=== PATIENT | female | born 1935 | race Caucasian/White ===

== ENCOUNTER 2016-04-02 20:05 | Inpatient (IN) | payer MEDICARE, OTHER ==
[~2016-04-02] VITALS: Ht 160 cm; Wt 78.6 kg
[~2016-04-02 20:05] MED LIST: ALENDRONATE SOD70 M1 PO; ALTACE10 MG PO; AMITRIPTYLINE75 MG PO; ARICEPT5 MG PO; ASPIRIN CHILDRE81 MG PO; ATENOLOL25 M1 PO; BACLOFEN 10MG T10 MG PO; BETIMOL 5 ML5 M1 OP; CALCIUM 600600 M1 PO; CARAFATE 1GM TAB1 GM PO; HYDROCHLOROTH12.5 M1 PO; MULTIVITAMIN1 TA1 PO; PRILOSEC20 MG PO; SULFAMETHOXAZOL1 TA6 PO
[2016-04-02 20:07] VITALS: BP 152/94
[2016-04-02 20:26] LABS: HEMOGLOBIN 12.2 g/dL (12.2-16.2); LYMPH # 1.4 K/mm3 (0.7-4.5); LYMPH % 49.2 % (10-50.0)
--- NOTE | 2016-04-02 20:34 | Emergency Room Report ---
History of Present Illness Time Seen by 2020 Presenting Problem in Triage Pt arrived:Walked Presenting Problem:PT COMPLAINING OF CHEST "TIGHTNESS" AND HER HEART "NOT FEELING RIGHT". SHE STATES THAT IT STARTED AT 1830 THIS PM. 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 N Clinical Suspician of Infection? N Mental Status: 1 - Regular (Normal Baseline) Sepsis Risk:Low Sepsis Risk Have you (or family members/close friends) recently traveled outside the [place]? N If Yes, where/when: Have you had exposure to infectious disease within the past month? N TB? Other? Specify: Source patient, RN notes reviewed, family, old records Exam Limitations no limitations Comment acute onset of palpatation w/o chest pain or syncope and no known hx of a fib Cardiac Chest Pain Chest pain indicative of cardiac No Timing/Duration this evening Severity moderate ALLERGIES Coded Allergies: rosuvastatin (From CREST[facility]) (04/02/16) Home Medications Reported Medications Hydrochlorothiazide (Hydrochlorothiazide 12.5MG) 12.5 MG PO DAILY ASPIRIN (Aspirin) 81 MG PO DAILY Gabapentin (Gabapentin 300MG) 300 MG PO QHS Atorvastatin Calcium (Atorvastatin) 40 MG PO DAILY Amlodipine Besylate (Amlodipine) 5 MG PO DAILY Cyanocobalamin (Vitamin B-12) (B-12) 1,000 MCG PO DAILY Cholecalciferol (Vitamin D3) (D3-2000) 1,000 UNIT PO DAILY Alpha Lipoic Acid 400 MG PO DAILY Calcium Carb/Vitamin D3/Vit K1 (Viactiv Soft Chew) 1 EACH PO DAILY UBIDECARENONE (Coenzyme Q-10) 300 MG PO DAILY IBUPROFEN MICRONIZED (IBUPROFEN 600MG) 600 MG PO Q8HP PRN PAIN Benzonatate (Tessalon Perle) 100 MG PO TID Azithromycin (Avpak Azithromycin) 250 MG PO DAILY Docusate Sodium 100 MG PO DAILY History Medical History General CAD? No Angina: No [place]: No Hypertension? Yes Hyperlipidemia? Yes CHF? No DVT? No PE? No COPD? No Asthma? No Anemia? No GERD? No Gastric ulcers? No GI Bleed? No Hernia? No Thyroid Problems? No Hypothyroidism? No CVA? No Seizures? No Diabetes? No Renal Insuffiency? No End Stage Renal Disease? No UTI? Yes Stones? No BPH? No GB Disease: Yes Nephritic Syndrome? No Asplenia? No Hepatitis? No Sickle Cell Disease? No Arthritis? No Migraines? No Cataracts? Yes Glaucoma? Yes MRSA? No HIV? No TB? No Anxiety? No Depression? No Cancer? Yes Site: ENDOMETRIAL More? No Immunization Hx DT/Tetanus 5-10 Years Ago Flu 2012-FSN Pneumonia Received In Past Surgical Hx Previous Surgery?Y D AND C LEFT WRIST CLOSED REDUC CATARACT REMOVAL BILAT. LEFT WRIST OPEN REDUC WISDOM TEETH HEART CATH ANKLE/TIB-FIB REPAIR COLONOSCOPY LAP ALEXANDRA LEFT KNEE ARTHROSCOPY HITAL HERNIA REPAIR [place] 02/10 Family History Family Hx Diabetes No CAD Yes Hypertension Yes Hyperlipidemia No Cancer Yes TB No Social History Smoking Hx Smoker: Never Smoker Tobacco: No Type N/A Are you/the child exposed to second-hand smoke: No Alcohol Alcohol: No Drugs none Review of Systems All Other Systems Reviewed and Negative Constitutional denies fever Eyes denies drainage ENT denies: ear pain, nose congestion, throat pain. Respiratory denies cough, denies shortness of breath, denies wheezing Cardiovascular see HPI, denies chest pain, palpitations, denies syncope Gastrointestinal denies abdominal pain, denies diarrhea, denies vomiting Genitourinary denies: dysuria, frequency, hesitancy, hematuria. Musculoskeletal denies back pain, denies joint pain, denies joint swelling, denies neck pain Skin denies rash Psychiatric/Neurological denies headache, denies seizure Physical Exam Vital Signs Vital Signs Date Time Temp Pulse Resp B/P Pulse O2 O2 Flow FiO2 Ox Delivery Rate 04/02 2113 130 18 144/70 97 04/02 2041 146 18 150/81 94 04/02 2006 98.2 145 18 152/94 96 - WBC >12,000 or <4,000 or 10% bands? 2 or more SIRS Criteria Met? B/P:144/70 MAP:113 Creatinine >2.0? UA output<0.5ml/kg/hr for 2 hrs? Platelet count >100,000? Lactate >2.0mmol/1? INR >1.2 or PTT > than 60 sec? Evidence of Organ Dysfunction? Provider documented clinical suspician of infection? N Sepsis Criteria Count: 1 Sepsis Risk: Low Sepsis Risk General Appearance no apparent distress Eye Exam - bilateral eye PERRL, bilateral eye EOMI Ear, Nose, Throat normal ENT inspection Neck supple, no bruits Respiratory Status No: respiratory distress. Lung Sounds bilateral: rhonchi. 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 No Results/Orders Laboratory Tests 04/02/162014: TSH Pending, Thyroxine (T4) Pending 04/02/162014: Sodium 135 L, Potassium 3.1 L, Chloride 98, Carbon Dioxide 31, BUN 17, Creatinine 1.0, Estimated Creat Clear 55, Estimated GFR (MDRD) 53 L, Glucose 156 H, Calcium 8.5, Total Bilirubin 0.3, AST 31, ALT 34, Alkaline Phosphatase 103, Creatine Kinase 106, CK-MB (CK-2) Rel Index 1.0, CK and CKMB Interp 1.1, Troponin I < 0.02, Total Protein 7.1, Albumin 3.4, Globulin 3.7 H, Albumin/ Globulin Ratio 0.9 L, WBC 2.9 L, RBC 4.38, Hgb 12.2, Hct 37.3, MCV 85.1, RDW 13.8, Plt Count 286, MPV 8.5, Gran % 38.9, Gran # 1.1 L, Total Counted 100, Lymphocytes % 49.2, Monocytes % 8.1, Eosinophils % 3.4, Basophils % 0.3, Neutrophils 37 L, Band Neutrophils 3, Lymphocytes (Manual) 54 H, Lymphocytes # 1.4, Monocytes (Manual) 6, Monocytes # 0.2, Eosinophils # 0.1, Basophils # 0.0, Platelet Estimate NORMAL, Rouleaux SL., PUBS MCHC 32.6, MCH 27.8 Current Medication Orders Sig/Yeny Start time Last Medication Dose Route Stop Time Status Admin Potassium Chloride 20 MEQ ONCE ONE 04/02 2114 DC PO 04/02 2115 Diltiazem HCl 10 MG ONCE ONE 04/02 2044 DC 04/02 IV 04/02 Diltiazem HCl 100 MG ONCE ONE 04/02 2044 AC 04/02 Sodium Chloride 100 ML IV 04/03 Diltiazem HCl 0 .STK-MED ONE 04/02 2041 DC IV Diltiazem HCl 0 .STK-MED ONE 04/02 2041 DC IV Sodium Chloride 100 ML .STK-MED ONE 04/02 2041 DC IV Aspirin 243 MG ONCE ONE 04/02 2029 DC 04/02 PO 04/02 Sodium Chloride 10 ML PRN PRN 04/02 2029 AC IV 04/03 2017 Aspirin 0 .STK-MED ONE 04/02 2022 DC .ROUTE Orders Procedure Date/time Status Decision to admit 04/02 2113 Active THYROID STIMULATING HORMONE 04/02 2034 Active THYROXINE (T4) 04/02 2034 Active ELECTROCARDIOGRAM REQUEST 04/02 2018 Active CHEST-PORTABLE 04/02 2018 Active IV SALINE LOCK 04/02 2018 Active CBC WITH AUTO DIFF 04/02 2018 Complete CARDIAC ENZYMES 04/02 2018 Complete CHEM 12 PROFILE 04/02 2018 Complete DIFFERENTIAL-WBC 04/02 2014 Complete CM/EKG CM/internal audit consultant Rhythm Atrial Fibrillation EKG non-spec. ST/Twave chgs XRAY/CT/US XRAY/CT/US XRAY chest XR interpretation by reviewed by me Xray Results normal/NAD Departure Departure Time of Disposition 2111 Disposition Still a Patient Clinical Impression Primary Impression: Atrial fibrillation with RVR Secondary Impressions: Hypokalemia Condition STABLE Referrals Gordon Cardoza MD (Family) discussed with dr cardoza ED Critical Care Critical Care No at 2117
[2016-04-02] MEDS ORDERED: GABAPENTIN300 MG PO (20:35)
[2016-04-02] MEDS ORDERED: LIPITOR40 MG PO (20:36)
[2016-04-02] MEDS ORDERED: AMLO5TAB PO (20:38)
[2016-04-02] MEDS ORDERED: B-121000 MC1 PO (20:43)
[2016-04-02] MEDS ORDERED: D3-20002000 UNIT PO (20:45)
[2016-04-02 20:47] LABS: NEUTROPHILS 37 % (42-76)
[2016-04-02] MEDS ORDERED: ALPHA LIPOIC A200 M1 PO (20:49)
[2016-04-02] MEDS ORDERED: VIACTIV SOFT C1 EACH PO (20:51)
[2016-04-02] MEDS ORDERED: COENZYME Q-10100 M1 PO (20:52)
[2016-04-02] MEDS ORDERED: IBUPROFEN 600M600 MG PO (20:53)
[2016-04-02] MEDS ORDERED: TESSALON PERLE100 M1 PO (20:54)
[2016-04-02] MEDS ORDERED: AVPAK AZITHROM250 MG PO (20:55)
[2016-04-02] MEDS ORDERED: DOCUSATE SODIU100 MG PO (20:57)
[2016-04-02 20:59] LABS: BUN 17 mg/dL (7-18)
[2016-04-02 21:00] LABS: GFR (ESTIMATED) 53 ML/MIN (59-)
--- NOTE | 2016-04-02 23:04 | RADIOLOGY REPORT PS360 ---
CHEST-PORTABLE COMPARISON: PA and lateral chest 02/01/2015 HISTORY: Chest pain TECHNIQUE: Portable semiupright chest FINDINGS: The lung jones are well expanded and appear clear of infiltrate. The cardiac silhouette and vascularity are normal and the costo phrenic angles are clear. There are monitor lines overlying the chest. IMPRESSION: Negative portable chest
[2016-04-02 23:15] VITALS: BP 114/66
[2016-04-02 23:21] VITALS: BP 114/66
[2016-04-02 23:30] VITALS: BP 114/66
[2016-04-03] VITALS (13 sets, daily range): BP systolic 85–148; BP diastolic 38–80
[2016-04-03 06:00] LABS: LYMPH # 1.4 K/mm3 (0.7-4.5); LYMPH % 60.9 % (10-50.0)
[2016-04-03 06:09] LABS: HEMOGLOBIN 10.6 g/dL (12.2-16.2)
--- NOTE | 2016-04-03 07:35 | PHARMACY CLINIC NOTE ---
Patient Demographics Patient Demographics Admission date: 04/02/16 Date: 04/03/16 Time: 0735 Allergies Coded Allergies: rosuvastatin (From CRESTOR) (04/02/16) HEIGHT- FT: 5 IN: 3.00 K.557 VTE General Information Labs: Laboratory Tests 04/03 Hematology Hgb (12.2 - 16.2 g/dL) 10.6 L 12.2 Hct (37.0 - 47.0 %) 33.6 L 37.3 Plt Count (142 - 424 K/mm3) 259 286 Disclaimer The following section includes nursing documentation that has been pulled in for pharmacy review. Patient's VTE score: 1 Patient's VTE Risk: VERY LOW RISK Clinical trial participant? No VTE prophylaxis [id number] VTE prophylaxis ordered? Yes Type of prophylaxis/treatment: TRAVON at 0735
--- NOTE | 2016-04-03 08:06 | CONSULT NOTE ---
Standard Demographics Patient Demo Date of Consultation: 04/03/16 Referring Provider: Gordon Riley MD Reason for Consultation: A. fib with RVR PRIMARY DIAGNOSIS: ATRIAL FIB Problem list Problem list: 1. Hypertension 2. Hyperlipidemia 3. Endometrial cancer status post hysterectomy with radiation therapy January 2016-March 2016 4. New-onset atrial fibrillation, 04/02/2016 5. Lower extremity neuropathy History of present illness: History of present illness: 80-year-old white female with history of hypertension and hyperlipidemia with recent surgery for endometrial cancer with recommendation for 3 radiation therapy treatments which she was to finish up today was admitted yesterday for acute onset of symptomatic atrial fibrillation. Symptoms of heart fluttering began about 6:30 last evening and when symptoms persisted patient came to the emergency department for further evaluation. Noted to be in atrial fibrillation with a rapid ventricular response at [address] segment abnormalities in the inferior lateral leads. Patient was placed on IV Cardizem with subsequent spontaneous conversion to sinus rhythm shortly thereafter. Cardiac enzymes have returned normal. During the atrial fibrillation patient did note discomfort in her back more so than her usual back pain. The symptoms have resolved since conversion to sinus rhythm. She denied any chest pain, nausea or diaphoresis. After conversion to sinus rhythm electrocardiogram obtained which shows sinus rhythm without ST segment changes. Cardiology consulted for evaluation and recommendation. Past Medical History: General: Hypertension Yes CVA No Seizures No TB No COPD No Asthma No Diabetes No Angina No [place] No Hyperlipidemia Yes Urinary No Cancer Yes Rheumatic H.D. No Ulcers Yes MRSA No GB Disease Yes Other NEUROPATHY Past Surgical HX: Previous Surgery?Y D AND C LEFT WRIST CLOSED REDUC CATARACT REMOVAL BILAT. LEFT WRIST OPEN REDUC WISDOM TEETH HEART CATH ANKLE/TIB-FIB REPAIR COLONOSCOPY LAP ALEXANDRA LEFT KNEE ARTHROSCOPY HITAL HERNIA REPAIR [place] 02/10 Allergies Coded Allergies: rosuvastatin (From CRESTOR) (04/02/16) Home medications: Reported Medications Gabapentin (Gabapentin 300MG) 300 MG PO TID Hydrochlorothiazide (Hydrochlorothiazide 12.5MG) 12.5 MG PO DAILY ASPIRIN (Aspirin) 81 MG PO DAILY Atorvastatin Calcium (Atorvastatin) 40 MG PO DAILY Amlodipine Besylate (Amlodipine) 5 MG PO DAILY Cholecalciferol (Vitamin D3) (D3-2000) 1,000 UNIT PO DAILY Alpha Lipoic Acid 400 MG PO DAILY Calcium Carb/Vitamin D3/Vit K1 (Viactiv Soft Chew) 1 EACH PO DAILY UBIDECARENONE (Coenzyme Q-10) 300 MG PO DAILY IBUPROFEN MICRONIZED (IBUPROFEN 600MG) 600 MG PO Q8HP PRN PAIN Benzonatate (Tessalon Perle) 100 MG PO TID Azithromycin (Avpak Azithromycin) 250 MG PO DAILY Docusate Sodium 100 MG PO DAILY Discontinued Reported Medications Cyanocobalamin (Vitamin B-12) (B-12) 1,000 MCG PO DAILY Current Medications: Current Medications Atorvastatin Calcium 40 MG QHS PO Gabapentin 300 MG QHS PO Aspirin 81 MG DAILY PO Benzonatate 100 MG TID PO Polyethylene Glycol 17 GM DAILY PO Sodium Chloride 10 ML PRN PRN IV Diltiazem HCl 30 MG ONCE ONE PO (DC) Diltiazem HCl 0 .STK-MED ONE .ROUTE (DC) Acetaminophen 650 MG Q4HP PRN PO Diltiazem HCl 100 MG .Q10H IV Sodium Chloride 100 ML Ondansetron HCl 4 MG Q6HP PRN IV Sodium Chloride 1,000 ML .Q20H IV Potassium Chloride 0 .STK-MED ONE PO (DC) Potassium Chloride 20 MEQ ONCE ONE PO (DC) Diltiazem HCl 10 MG ONCE ONE IV (DC) Diltiazem HCl 100 MG ONCE ONE IV (DC) Sodium Chloride 100 ML Diltiazem HCl 0 .STK-MED ONE IV (DC) Diltiazem HCl 0 .STK-MED ONE IV (DC) Sodium Chloride 100 ML .STK-MED ONE IV (DC) Aspirin 243 MG ONCE ONE PO (DC) Sodium Chloride 10 ML PRN PRN IV Aspirin 0 .STK-MED ONE .ROUTE (DC) Immunization HX DT/Tetanus 5-10 Years Flu 2012-FSN Pneumonia RECEIVED IN PAST TB Test in last year No Family history Family HX Family Hx Insignificant No Diabetes No CAD Yes Hypertension Yes Hyperlipidemia No Cancer Yes TB No Social Hx: Smoking HX Tobacco No Type N/A Are you/the child exposed to second-hand smoke: No Alcohol Alcohol: No Hx of Drug Use Drug Use? No Review of systems: Constitutional No: no symptoms reported. Respiratory No: no symptoms reported. Cardiovascular see HPI, palpitations Gastrointestinal/Abdominal No no symptoms reported Genitourinary No: no symptoms reported. Musculoskeletal back pain. Neurological Yes: parasthesia. Exam: Admission Vital Signs: 1ST Vital Signs Result Date Time Pulse Ox 96 04/02 2006 B/P 152/94 04/02 2006 Temp 98.2 04/02 2006 Pulse 145 04/02 2006 Resp 04/02 O2 Delivery ROOM AIR 04/02 2300 O2 Flow Rate 2 04/03 199 Last Vital Signs: Vital Signs Result Date Time Pulse Ox 94 04/03 599 B/P 114/72 04/03 599 O2 Delivery OXYGEN 04/03 599 O2 Flow Rate 2 04/03 599 Temp 98.4 04/03 599 Pulse 76 04/03 599 Resp 18 04/03 599 Exam General appearance: alert, awake, no acute distress Neck: no carotid bruit, no JVD Cardiovascular: regular rate & rhythm, no murmur Respiratory: mild inspiratory rhonchi with expiratory wheezing bilaterally. ABD: soft Extremities: moves all, no peripheral edema Neuro: alert, intact, oriented, speech clear Laboratory data: Laboratory Tests 04/03/16 0550: Sodium 138, Potassium 3.1 L, Chloride 104, Carbon Dioxide 29, BUN 13, Creatinine 0.8, Estimated Creat Clear 68, Estimated GFR (MDRD) 69, Glucose 93, Calcium 8.1 L, Creatine Kinase 70, CK-MB (CK-2) Rel Index 2.0, CK and CKMB Interp 1.4, Troponin I 0.02, WBC 2.3 L, RBC 3.95 L, Hgb 10.6 L, Hct 33.6 L, MCV 85.2, RDW 13.6, Plt Count 259, MPV 8.4, Gran % 25.0 L, Gran # 0.6 *L, Lymphocytes % 60.9 H, Monocytes % 7.8, Eosinophils % 5.5, Basophils % 0.9, Lymphocytes # 1.4, Monocytes # 0.2, Eosinophils # 0.1, Basophils # 0.0, PUBS MCHC 31.5 L, MCH 26.8 L 04/03/16 0300: Creatine Kinase 73, CK-MB (CK-2) Rel Index 1.4, CK and CKMB Interp 1.0, Troponin I 0.03 04/02/162014: TSH 3.55, Thyroxine (T4) 10.5 04/02/162014: Sodium 135 L, Potassium 3.1 L, Chloride 98, Carbon Dioxide 31, BUN 17, Creatinine 1.0, Estimated Creat Clear 55, Estimated GFR (MDRD) 53 L, Glucose 156 H, Calcium 8.5, Total Bilirubin 0.3, AST 31, ALT 34, Alkaline Phosphatase 103, Creatine Kinase 106, CK-MB (CK-2) Rel Index 1.0, CK and CKMB Interp 1.1, Troponin I < 0.02, Total Protein 7.1, Albumin 3.4, Globulin 3.7 H, Albumin/ Globulin Ratio 0.9 L, WBC 2.9 L, RBC 4.38, Hgb 12.2, Hct 37.3, MCV 85.1, RDW 13.8, Plt Count 286, MPV 8.5, Gran % 38.9, Gran # 1.1 L, Total Counted 100, Lymphocytes % 49.2, Monocytes % 8.1, Eosinophils % 3.4, Basophils % 0.3, Neutrophils 37 L, Band Neutrophils 3, Lymphocytes (Manual) 54 H, Lymphocytes # 1.4, Monocytes (Manual) 6, Monocytes # 0.2, Eosinophils # 0.1, Basophils # 0.0, Platelet Estimate NORMAL, [facility]., PUBS MCHC 32.6, MCH 27.8 Plan: Assessment: 1. New onset atrial fibrillation with a rapid ventricular response with conversion to sinus rhythm after IV Cardizem instituted. Recommend switching to by mouth Cardizem and starting anticoagulation in the form of Xarelto 20 mg daily. Patient's thyroid functions are normal. Echocardiogram shows preserved LEFT ventricular ejection fraction without significant cardiac valve disease. 2. Back pain with history of cardiac catheterization in 2009 with no recommendations for stenting at that time. We'll obtain those records for review. Recommend stress testing once patient has recovered from upper respiratory tract infection. 3. Hypertension 4. Hyperlipidemia 5. Hypokalemia, recommend replacement. 6. Mild anemia 7. Recent hysterectomy for endometrial cancer. Patient has one radiation treatment LEFT. Recommendations: Discussed with Dr. LEYVA. See above. at 3436
--- NOTE | 2016-04-03 08:47 | HISTORY AND PHYSICAL REPORT ---
History and Physical ([facility]) Date of admission: 04/02/16 Chief complaint: heart fluttering History: History of Present Illness: 80-year-old white female with history of hypertension and hyperlipidemia with recent surgery for endometrial cancer with recommendation for 3 radiation therapy treatments which she was to finish up today was admitted yesterday for acute onset of symptomatic atrial fibrillation. Symptoms of heart fluttering began about 6:30 last evening and when symptoms persisted patient came to the emergency department for further evaluation. Noted to be in atrial fibrillation with a rapid ventricular response at [address] segment abnormalities in the inferior lateral leads. Patient was placed on IV Cardizem with subsequent spontaneous conversion to sinus rhythm shortly thereafter. Cardiac enzymes have returned normal. During the atrial fibrillation patient did note discomfort in her back more so than her usual back pain. The symptoms have resolved since conversion to sinus rhythm. She denied any chest pain, nausea or diaphoresis. After conversion to sinus rhythm electrocardiogram obtained which shows sinus rhythm without ST segment changes. Cardiology consulted for evaluation and recommendation. This AM patient denies CP and SOB; she could tell immediately when she converted to NSR; she has been up to the bathroom without problems. Past Medical History: Medical History: CAD? No Angina: No CA: No Hypertension? Yes Hyperlipidemia? Yes CHF? No DVT? No PE? No COPD? No Asthma? No Anemia? No GERD? No Gastric ulcers? No GI Bleed? No Hernia? No Thyroid Problems? No Hypothyroidism? No CVA? No Seizures? No Diabetes? No Renal Insuffiency? No UTI? Yes Stones? No BPH? No GB Disease: Yes Nephritic Syndrome? No Asplenia? No Hepatitis? No Sickle Cell Disease? No Arthritis? No Migraines? No Cataracts? Yes Glaucoma? Yes MRSA? No HIV? No TB? No Anxiety? No Depression? No Cancer? Yes Site: ENDOMETRIAL More? No Surgical history: Previous Surgery?Y D AND C LEFT WRIST CLOSED REDUC CATARACT REMOVAL BILAT. LEFT WRIST OPEN REDUC WISDOM TEETH HEART CATH ANKLE/TIB-FIB REPAIR COLONOSCOPY LAP ALEXANDRA LEFT KNEE ARTHROSCOPY HITAL HERNIA REPAIR [place] 02/10 Medications: Reported Medications Gabapentin (Gabapentin 300MG) 300 MG PO TID Hydrochlorothiazide (Hydrochlorothiazide 12.5MG) 12.5 MG PO DAILY ASPIRIN (Aspirin) 81 MG PO DAILY Atorvastatin Calcium (Atorvastatin) 40 MG PO DAILY Amlodipine Besylate (Amlodipine) 5 MG PO DAILY Cholecalciferol (Vitamin D3) (D3-2000) 1,000 UNIT PO DAILY Alpha Lipoic Acid 400 MG PO DAILY Calcium Carb/Vitamin D3/Vit K1 (Viactiv Soft Chew) 1 EACH PO DAILY UBIDECARENONE (Coenzyme Q-10) 300 MG PO DAILY IBUPROFEN MICRONIZED (IBUPROFEN 600MG) 600 MG PO Q8HP PRN PAIN Benzonatate (Tessalon Perle) 100 MG PO TID Azithromycin (Avpak Azithromycin) 250 MG PO DAILY Docusate Sodium 100 MG PO DAILY Discontinued Reported Medications Cyanocobalamin (Vitamin B-12) (B-12) 1,000 MCG PO DAILY Allergies: Coded Allergies: rosuvastatin (From [facility]) (04/02/16) Family History: Family history: Postive for: DM, cancer. Social History: Smoking Hx Tobacco: No Smoker: Never Smoker Type: N/A Packs/day: N/A Are you exposed to second hand No Alcohol: Alcohol: No Hx of Drug Use: Drug Use? No Review of Systems: Constitutional Positive for: chills. ENT Positive for: sore throat. Cardiovascular Positive for: palpitations. No: chest pain. Respiratory Positive for: productive cough (sputum), wheezing. GI No: GERD, abdominal pain, constipation, diarrhea, melena, nausea, vomitting. (female) No: frequency, hematuria. Neurological Positive for: headache. No: dizziness, seizure, syncope. Musculoskeletal Positive for: extremity pain, lumbar pain. Physical Exam: Vital signs: 1ST Vital Signs Result Date Time Pulse Ox 96 04/02 2006 B/P 152/94 04/02 2006 Temp 98.2 04/02 2006 Pulse 145 04/02 2006 Resp 18 04/02 2006 O2 Delivery ROOM AIR 04/02 2300 O2 Flow Rate 2 04/03 0200 Exam: General appearance: alert, active, no acute distress, well-developed, well- nourished Eyes: anicteric ENT: mucous membranes moist, pharynx normal Neck: no carotid bruit, lymphadenopathy (absent), thyroid (normal) Cardiovascular: regular rate & rhythm, Has converted to NSR in the 70's Respiratory: wheezing anteriorly bilaterally ABD: soft, no tenderness, no guarding, bowel sounds present, 3 well healed postop wounds Extremities: no peripheral edema, no calf tenderness Neuro: alert, oriented Lab data: Labs: Laboratory Tests 04/03/16 0550: Sodium 138, Potassium 3.1 L, Chloride 104, Carbon Dioxide 29, BUN 13, Creatinine 0.8, Estimated Creat Clear 68, Estimated GFR (MDRD) 69, Glucose 93, Calcium 8.1 L, Creatine Kinase 70, CK-MB (CK-2) Rel Index 2.0, CK and CKMB Interp 1.4, Troponin I 0.02 04/03/16 0550: B-Natriuretic Peptide 55, WBC 2.3 L, RBC 3.95 L, Hgb 10.6 L, Hct 33.6 L, MCV 85.2, RDW 13.6, Plt Count 259, MPV 8.4, Gran % 25.0 L, Gran # 0.6 *L, Lymphocytes % 60.9 H, Monocytes % 7.8, Eosinophils % 5.5, Basophils % 0.9, Lymphocytes # 1.4, Monocytes # 0.2, Eosinophils # 0.1, Basophils # 0.0, PUBS MCHC 31.5 L, MCH 26.8 L 04/03/16 0300: Creatine Kinase 73, CK-MB (CK-2) Rel Index 1.4, CK and CKMB Interp 1.0, Troponin I 0.03 04/02/162014: TSH 3.55, Thyroxine (T4) 10.5 04/02/162014: Sodium 135 L, Potassium 3.1 L, Chloride 98, Carbon Dioxide 31, BUN 17, Creatinine 1.0, Estimated Creat Clear 55, Estimated GFR (MDRD) 53 L, Glucose 156 H, Calcium 8.5, Total Bilirubin 0.3, AST 31, ALT 34, Alkaline Phosphatase 103, Creatine Kinase 106, CK-MB (CK-2) Rel Index 1.0, CK and CKMB Interp 1.1, Troponin I < 0.02, Total Protein 7.1, Albumin 3.4, Globulin 3.7 H, Albumin/ Globulin Ratio 0.9 L, WBC 2.9 L, RBC 4.38, Hgb 12.2, Hct 37.3, MCV 85.1, RDW 13.8, Plt Count 286, MPV 8.5, Gran % 38.9, Gran # 1.1 L, Total Counted 100, Lymphocytes % 49.2, Monocytes % 8.1, Eosinophils % 3.4, Basophils % 0.3, Neutrophils 37 L, Band Neutrophils 3, Lymphocytes (Manual) 54 H, Lymphocytes # 1.4, Monocytes (Manual) 6, Monocytes # 0.2, Eosinophils # 0.1, Basophils # 0.0, Platelet Estimate NORMAL, Rouleaux SL., PUBS MCHC 32.6, MCH 27.8 Radiology results: Results: CXR 04/02/16 IMPRESSION: Negative portable chest Diagnosis(es): 1. Atrial fibrillation with RVR 2. Hypokalemia 3. Bronchitis after surgery 4. Bronchitis Plan: Patient has been seen by cardiology; She will remain on PO cardizem; start Xarelto; and stop amlodipine; see cardiology note; will continue with KCL and also start xopenex ; will move her out of step down (Saray Bills APRN) Diagnosis(es): 1. Atrial fibrillation with RVR 2. Hypokalemia 3. Bronchitis after surgery 4. Bronchitis Plan: Patient seen and agree with above note. (Gordon Riley MD) at 0846 at 0900
[2016-04-04 00:24] VITALS: BP 120/57
[2016-04-04 04:58] VITALS: BP 139/68
[2016-04-04 07:53] VITALS: BP 119/64
--- NOTE | 2016-04-04 08:06 | ACUTE CARE PROGRESS NOTE (QUA) ---
Progress Notes Subjective Date 04/04/16 Time 0801 Note Patient has remained in NSR and is ready to go home. She denies CP and SOB. She has an infrequent productive cough. She ate without problems. She was up in the room yesterday without problems. Objective Findings Vital Signs Date Time Temp Pulse Resp B/P Pulse O2 O2 Flow FiO2 Ox Delivery Rate 04/04 0753 98.2 72 18 119/64 98 ROOM AIR 04/04 0546 2 04/04 0546 94 ROOM AIR 04/04 0458 98.7 89 18 139/68 93 ROOM AIR / 0024 98.2 87 18 120/57 95 ROOM AIR / 2028 98.0 75 18 145/73 92 /2005 98.0 75 18 145/73 92 ROOM AIR /1999 2 04/03 1999 97 ROOM AIR / 1634 98.5 82 20 148/78 98 ROOM AIR / 1349 2 04/03 1349 98 ROOM AIR / 1149 98.4 98 20 143/80 94 ROOM AIR / 0930 98.4 76 18 114/72 94 Current Medications Atorvastatin Calcium 40 MG QHS PO (DC) Atorvastatin Calcium 40 MG QHS PO Gabapentin 300 MG QHS PO (DC) Gabapentin 300 MG QHS PO (DC) Sodium Chloride 1,000 ML .Q20H IV Rivaroxaban 20 MG DAILY PO (DC) Rivaroxaban 20 MG DAILY PO Gabapentin 300 MG TID PO Gabapentin 0 .STK-MED ONE .ROUTE (DC) Levalbuterol HCl 0.63 MG TIDRT INH Acetaminophen 650 MG Q4HP PRN PO Aspirin 81 MG DAILY PO (DC) Aspirin 81 MG DAILY PO Benzonatate 100 MG TID PO (DC) Benzonatate 100 MG TID PO Diltiazem HCl 240 MG DAILY PO (DC) Diltiazem HCl 240 MG DAILY PO Ondansetron HCl 4 MG Q6HP PRN IV Polyethylene Glycol 17 GM DAILY PO (DC) Polyethylene Glycol 17 GM DAILY PO Potassium Chloride 40 MEQ DAILY PO (DC) Potassium Chloride 40 MEQ DAILY PO Sodium Chloride 10 ML PRN PRN IV (DC) Sodium Chloride 10 ML PRN PRN IV Sodium Chloride 10 ML PRN PRN IV (DC) Acetaminophen 650 MG Q4HP PRN PO (DC) Diltiazem HCl 100 MG .Q10H IV (DC) Sodium Chloride 100 ML Ondansetron HCl 4 MG Q6HP PRN IV (DC) Sodium Chloride 1,000 ML .Q20H IV (DC) Sodium Chloride 10 ML PRN PRN IV (DC) 04/03 1500 04/03 2300 04/04 0700 Intake Total 850 10 Output Total Balance 850 10 Intake, IV 850 10 Output, Stool Patient 173 lb Weight Last VS-Temp:98.2 B/P:119/64 Pulse:72 Resp:18 SaO2:98 ROOM AIR Last weight lbs:173 oz:3 K.557 Method:Bed Scales Exam General appearance: alert, active, no acute distress, well-developed, well- nourished Cardiovascular: regular rate & rhythm, monitor showing NSR in the 70's Respiratory: audible wheezing anteriorly ABD: soft, no tenderness, bowel sounds present Extremities: no peripheral edema, no calf tenderness Neuro: alert, oriented, speech clear Assessment/Plan Problem List 1. Atrial fibrillation with RVR 2. Hypokalemia 3. Bronchitis after surgery 4. Bronchitis Patient condition Improved Plan: Home today with med changes as per med list This inpt stay is expected to cross 2 MNs from start of care No (Saray Bills APRN) Assessment/Plan Problem List 1. Atrial fibrillation with RVR 2. Hypokalemia 3. Bronchitis after surgery 4. Bronchitis Comments: Patient seen and agree with above note. Plan discharge today on Cardizem, Xarelto and Xopenex. F/u in office in 6 days. (Gordon Riley MD) at [phone] at [phone]
[2016-04-04] MEDS ORDERED: XARELTO10 MG PO (08:35)
[2016-04-04] MEDS ORDERED: DILTIAZEM CD 2240 MG PO (08:35)
[2016-04-04] MEDS ORDERED: K-DUR 20MEQ TA20 MEQ PO (08:36)
[2016-04-04] MEDS ORDERED: XOPENEX HF0.045 MG/A IH (08:38)
--- NOTE | 2016-04-04 17:03 | RADIOLOGY REPORT PS360 ---
PROCEDURE: 2-D M-mode and color Doppler study INDICATIONS FOR THE TEST: Chest pain COPD Heart Murmur Tobacco Smoking Palpitations+ Fatigue Syncope Edema Hypertension Diabetes Mellitus Rheumatic Fever SOB OLIVEIRA Obesity Hyperlipidemia Family History HD Additional History PATIENT INFORMATION HEIGHT: 63 [id number]: GENDER: Female B/P:111/55 2-D/M-MODE INTERPRETATION: 2-D MEASUREMENTS OBSERVED VALUES IN CMS Right Ventricular Dimension (RVDd) 2.0 Interventricular Septum (Thickness)(IVsd) 1.3 Left Ventricular Internal Dimensions(LVIDd) 4.9 Left Ventricular Posterior Wall (Thickness)(LVPWd) 0.6 Aortic Root 2.9 Aortic Cusp Separation 1.9 Left Atrial Dimensions (LAD) 4.0 2D 1. Left atrium is qualitatively mildly enlarged, left ventricle is normal size, there is mild concentric left ventricular hypertrophy present, visually estimated ejection fraction 55% with no obvious regional wall motion abnormality. 2. The right-sided chambers are normal size and contractility. 3. The aortic valve is minimally thickened and calcified leaflet continue to display good mobility there is no aortic stenosis. 4. The mitral valve has mitral calcification there is no mitral stenosis. 5. The tricuspid valve restructure normal. 6. The pulmonic valve not well visualized. 7. No significant pericardial effusion noted. DOPPLER INTERROGATION: 1. The aortic outflow velocities within normal range, there is no aortic stenosis, there is mild aortic insufficiency present. 2. The mitral inflow velocity within normal range, there is no mitral stenosis, there is mild mitral regurgitation. 3. There is mild tricuspid regurgitation noted, tricuspid regurgitant jet velocity insufficient for acquisition of the right ventricular systolic pressure. CONCLUSION: 1. Mildly enlarged left atrium, normal left ventricular size, mild concentric left ventricular hypertrophy, visually estimated ejection fraction 55% with no obvious regional wall motion abnormality. 2. Mild mitral aortic and tricuspid regurgitation 3. No significant pericardial effusion noted.
--- NOTE | 2016-04-06 13:49 | DISCHARGE SUMMARY STANDARD ---
Discharge Summary ([facility]) Date of admission: 04/02/16 Date of discharge: 04/04/16 Problem List: 1. Atrial fibrillation with RVR 2. Hypokalemia 3. Bronchitis after surgery History of present illness: Ms. Chacko is an 80-year-old white female with history of hypertension and hyperlipidemia with recent surgery for endometrial cancer. It was recommended she have 3 radiation therapy treatments, which she was to finish up on the day of admission. She had an acute onset of symptomatic atrial fibrillation. She came to the emergency department for further evaluation. She was noted to be in atrial fibrillation with a rapid ventricular response at [address] segment abnormalities in the inferior lateral leads. She was placed on IV Cardizem with subsequent spontaneous conversion to sinus rhythm shortly thereafter. Her cardiac enzymes returned normal. During the atrial fibrillation, the patient did note discomfort in her back more so than her usual back pain. The symptoms resolved after conversion to sinus rhythm. She denied any chest pain, nausea or diaphoresis. After conversion to sinus rhythm, an electrocardiogram showed sinus rhythm without ST segment changes. Cardiology was consulted for evaluation and recommendation. Exam on admission: General appearance: alert, active, no acute distress, well-developed, well- nourished Eyes: anicteric ENT: mucous membranes moist, pharynx normal Neck: no carotid bruit, lymphadenopathy (absent), thyroid (normal) Cardiovascular: regular rate & rhythm, Has converted to NSR in the 70's Respiratory: wheezing anteriorly bilaterally ABD: soft, no tenderness, no guarding, bowel sounds present, 3 well healed postop wounds Extremities: no peripheral edema, no calf tenderness Neuro: alert, oriented Hospital Course: She had a chest x-ray done which was normal. She was weaned from her drip and started on PO Cardizem as well as Xarelto as per cardiology's recommendation. She was also started on potassium replacement. She had an echo done showing preserved LEFT ventricular ejection fraction without significant cardiac valve disease. She had some wheezing and was started on Xopenex nebs. By 04/04/16, she remained in normal sinus rhythm throughout the night and was anxious to go home. She was stable to be discharged home on PO Cardizem, Xarelto , and Xopenex and would follow-up in the office of [facility] with Dr. Riley. Discharge medications: Stop taking the following medications: Amlodipine Besylate (Amlodipine) 5 MG TABLET ORAL DAILY Azithromycin (Avpak Azithromycin) 250 MG TABLET ORAL DAILY Continue taking these medications: Hydrochlorothiazide (Hydrochlorothiazide 12.5MG) 12.5 MG CAPSULE 12.5 MILLIGRAM ORAL DAILY ASPIRIN (Aspirin) 81 MG TAB.CHEW 81 MILLIGRAM ORAL DAILY Gabapentin (Gabapentin 300MG) 300 MG CAPSULE 300 MILLIGRAM ORAL THREE TIMES A DAY Atorvastatin Calcium (Atorvastatin) 40 MG TABLET 40 MILLIGRAM ORAL DAILY Cholecalciferol (Vitamin D3) (D3-2000) 2,000 UNIT CAPSULE 1,000 UNIT ORAL DAILY Alpha Lipoic Acid (Alpha Lipoic Acid) 200 MG CAPSULE 400 MILLIGRAM ORAL DAILY Calcium Carb/Vitamin D3/Vit K1 (Viactiv Soft Chew) 1 EACH TAB.CHEW 1 EACH ORAL DAILY UBIDECARENONE (Coenzyme Q-10) 100 MG CAPSULE 300 MILLIGRAM ORAL DAILY IBUPROFEN MICRONIZED (IBUPROFEN 600MG) 600 MG TABLET 600 MILLIGRAM ORAL EVERY 8 HOURS NEEDED as needed for PAIN Benzonatate (Tessalon Perle) 100 MG CAPSULE 100 MILLIGRAM ORAL THREE TIMES A DAY Docusate Sodium (Docusate Sodium) 100 MG CAPSULE 100 MILLIGRAM ORAL DAILY Start taking the following new medications: DILTIAZEM HCL (Diltiazem 24HR ER) 240 MG CAP.ER.24H 240 MILLIGRAM ORAL DAILY Qty = 30 Refills = 5 Rivaroxaban (Xarelto) 10 MG TABLET 20 MILLIGRAM ORAL DAILY Qty = 30 Refills = 5 POTASSIUM CHL (Potassium Chloride) 20 MEQ TAB.ER.PRT 20 Milliequivalent ORAL DAILY Qty = 30 Refills = 5 Levalbuterol Tartrate (Xopenex HFA INH) 15 GM HFA.AER.AD 1 PUFF INHALATION EVERY 8 HOURS (07/08/20) Qty = 1 Refills = 1 Instructions: UNTIL COUGH RESOLVED Disposition: F/U with: Gordon Riley MD Follow up: 6 DAYS Activity: Cont Current activity Diet: Continue same diet Discharge to: HOME Agency needed? N at 1348
== END 2016-04-04 09:45 | disposition home or self-care (01) | DRG 310 ==
LOC: ER 20:05 → 2ND 21:16 → ER 21:16 → 2ND 22:30
PROVIDERS: Emergency Medicine
DX: I48.91 Unspecified atrial fibrillation (principal); C54.1 Malignant neoplasm of endometrium; I10 Essential (primary) hypertension; E87.6 Hypokalemia; J40 Bronchitis, not specified as acute or chronic

== ENCOUNTER → 2016-12-19 | Outpatient (CLI) | payer MEDICARE, OTHER ==
[~2016-12-19] MED LIST changes: +ALPHA LIPOIC A200 M1 PO; +AMLO5TAB PO; +AVPAK AZITHROM250 MG PO; +B-121000 MC1 PO; +COENZYME Q-10100 M1 PO; +D3-20002000 UNIT PO; +DILTIAZEM CD 2240 MG PO; +DOCUSATE SODIU100 MG PO; +GABAPENTIN300 MG PO; +IBUPROFEN 600M600 MG PO; +K-DUR 20MEQ TA20 MEQ PO; +LIPITOR40 MG PO; +TESSALON PERLE100 M1 PO; +VIACTIV SOFT C1 EACH PO; +XARELTO10 MG PO; +XOPENEX HF0.045 MG/A IH
--- NOTE | 2016-12-19 11:53 | RADIOLOGY REPORT PS360 ---
KNEE-3 VIEWS-RT HISTORY: RT KNEE PAIN ORDERING PHYSICIAN: Gordon Riley MD PATIENT AGE: 81 years COMPARISON: None FINDINGS: No fracture or dislocation. No lytic or blastic change. Normal mineralization. There is slight decrease in joint space medially and there is very minimal osteophyte formation along the posterior patella No other significant findings IMPRESSION: Minimal osteoarthritic change, no acute finding
== END ==
LOC: RAD 10:01
DX: M25.561 Pain in right knee (principal)

== ENCOUNTER → 2017-01-02 | Outpatient (CLI) | payer MEDICARE, OTHER ==
--- NOTE | 2017-01-06 11:21 | RADIOLOGY REPORT PS360 ---
MRI-LOW EXT ANY JOINT W/O-RT HISTORY: Acute pain of the right knee. Medial sided pain ACUTE PAIN OF RIGHT KNEE ORDERING PHYSICIAN: Gordon Riley MD PATIENT AGE: 81 years COMPARISON: 12/19/2016 TECHNIQUE: Standard multiplanar multiecho sequences are performed without contrast. FINDINGS: The cruciate ligaments are intact. The collateral ligaments, patellar tendon, and quadriceps tendon also appear intact. No definite meniscal tear. The anterior horn the medial meniscus is extruded medially with resultant decrease in the medial joint space. Mild osteoarthritic changes are present at the patellofemoral joint. There is a small knee joint effusion. There is mild diffuse subcutaneous edema about the knee. No fracture or dislocation. There is some edema present in the pretibial region medially. This could be due to trauma. This is medial to the patellar tendon and deep to the infrapatellar fat pad. IMPRESSION: 1. 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 2. Small knee joint effusion. 3. No definite meniscal tear or ligamentous tear. 4. Diffuse subcutaneous edema about the knee with edematous change superficial to the medial aspect of the proximal tibia suggesting underlying posttraumatic or inflammatory change.
== END ==
LOC: RAD 14:03
DX: M25.561 Pain in right knee (principal)